=== PATIENT | female | born 1995 | race American Indian/Alaskan Native ===

== ENCOUNTER 2016-07-17 12:00 | Emergency (ER) | payer OTHER ==
[2016-07-17] MEDS ORDERED: FLEXERIL PO ONE (17:19)
[2016-07-17] MEDS ORDERED: MOTRIN PO ONE (17:19)
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
[2016-07-17 20:14] VITALS: BP 128/75
== END 2016-07-17 20:15 | disposition home or self-care (01) ==
LOC: ED 12:00
DX: S16.1XXA Strain of muscle, fascia and tendon at neck level, initial encounter (principal); M54.5 Low back pain; M25.511 Pain in right shoulder; V49.59XA Passenger injured in collision with other motor vehicles in traffic accident, initial encounter; Y93.9 Activity, unspecified; Y92.9 Unspecified place or not applicable; Y99.9 Unspecified external cause status
CPT/HCPCS: 72100

== ENCOUNTER 2018-05-10 12:48 | Emergency (ER) | payer OTHER ==
--- NOTE | 2018-05-10 13:14 | Emergency Department Report ---
Chief Complaint: Upper Respiratory Infection Stated Complaint: SINUS PRESSURE/WINDED Time Seen by Provider: 05/10/18 13:13 - HPI History of Present Illness: PMH FIBROIDS RX NONE PSH NONE MENSES CURRENT CIG ETOH NO DRUGS CO URTI S/S ABC INTACT VSS MSE COMPLETED MSE screening note: Focused history and physical exam performed. Due to findings the following was ordered: ED Disposition for MSE Condition: Stable
--- NOTE | 2018-05-10 16:01 | Emergency Department Report ---
- General Chief Complaint: Upper Respiratory Infection Stated Complaint: SINUS PRESSURE/WINDED Time Seen by Provider: 05/10/18 13:13 Source: patient Mode of arrival: Ambulatory Limitations: No Limitations - History of Present Illness Initial Comments: Sinus pain and pressure 4 days with productive cough. Patient did receive a flu shot PMD: Dr. Lion ROBERSON Complaint: cough, sore throat, rhinorrhea, nasal congestion, sinus pain -: days(s) (4) Severity: moderate Severity scale (0 -10): 8 Quality: other (pressure) Consistency: constant Improves With: nothing Worsens With: other (cough) Context: other (denies contacts or recent travel) Associated Symptoms: nasal congestion, cough, shortness of breath (on a daily). denies: fever, chills, sore throat, chest pain, nausea, vomiting, diarrhea Treatments Prior to Arrival: none - Related Data Previous Rx's Medication Instructions Recorded Last Taken Type Ibuprofen [Motrin] 600 mg PO Q8H PRN #15 tablet 07/17/16 Unknown Rx methOCARBAMOL [Robaxin TAB] 500 mg PO Q6H PRN #15 tablet 07/17/16 Unknown Rx traMADol [Ultram] 50 mg PO Q6HR PRN #12 tablet 07/17/16 Unknown Rx Azithromycin [Zithromax Z-IFEANYI] 1 dose PO DAILY 5 Days tab 05/10/18 Unknown Rx Benzonatate [Tessalon Perle] 100 mg PO TID PRN #20 capsule 05/10/18 Unknown Rx Guaifenesin/Pseudoephedrne HCl 1 each PO BID PRN #20 tab.er.12h 05/10/18 Unknown Rx [Mucinex D ER 600-60 mg Tablet] Ibuprofen [Motrin] 800 mg PO Q8HR PRN #30 tablet 05/10/18 Unknown Rx Allergies Allergy/AdvReac Type Severity Reaction Status Date / Time No Known Allergies Allergy Unverified 07/17/16 13:39 ED Review of Systems ROS: Stated complaint: SINUS PRESSURE/WINDED Other details as noted in HPI Comment: All other systems reviewed and negative ED Past Medical Hx - Past Medical History Previous Medical History?: Yes Additional medical history: Uterine fibroids - Surgical History Past Surgical History?: Yes Additional Surgical History: Tonsilectomy - Social History Smoking Status: Current Every Day Smoker Substance Use Type: Alcohol - Medications Home Medications: Home Medications Medication Instructions Recorded Confirmed Last Taken Type Ibuprofen [Motrin] 600 mg PO Q8H PRN #15 tablet 07/17/16 Unknown Rx methOCARBAMOL [Robaxin TAB] 500 mg PO Q6H PRN #15 tablet 07/17/16 Unknown Rx traMADol [Ultram] 50 mg PO Q6HR PRN #12 tablet 07/17/16 Unknown Rx Azithromycin [Zithromax Z-IFEANYI] 1 dose PO DAILY 5 Days tab 05/10/18 Unknown Rx Benzonatate [Tessalon Perle] 100 mg PO TID PRN #20 capsule 05/10/18 Unknown Rx Guaifenesin/Pseudoephedrne HCl 1 each PO BID PRN #20 tab.er.12h 05/10/18 Unknown Rx [Mucinex D ER 600-60 mg Tablet] Ibuprofen [Motrin] 800 mg PO Q8HR PRN #30 tablet 05/10/18 Unknown Rx ED Physical Exam - General Limitations: No Limitations - Other Other exam information: General: No limitations, patient is alert in no acute distress Head exam: Atraumatic, normocephalic Eyes exam: Normal appearance, pupils equal reactive to light, extraocular movements intact ENT: Moist mucous membrane, frontal and maxillary sinus tenderness, nasal ingestion Neck exam: Normal inspection, full range of motion, no meningismus nontender Respiratory exam: Clear to auscultation bilateral, no wheezes, rales, crackles, no tachypnea or accessory muscle use Cardiovascular: Normal rate and rhythm, normal heart sounds Abdomen: Soft, nondistended, and nontender, with normal bowel sounds, no rebound, or guarding Extremity: Full range of motion normal inspection no deformity Back: Normal Inspection, full range of motion, no tenderness Neurologic: Alert, oriented x3, cranial nerves intact, no motor or sensory deficit Psychiatric: normal affect, normal mood Skin: Warm, dry, intact ED Course Vital Signs 05/10/18 13:16 Temperature 98 F Pulse Rate 68 Respiratory 18 Rate Blood Pressure 109/58 O2 Sat by Pulse 100 Oximetry ED Medical Decision Making - Medical Decision Making Treated with a Z-Ifeanyi for sinusitis and URI symptoms. Follow-up with PMD encourage - Differential Diagnosis sinusitis, URI, bronchitis, pneumonia Critical Care Time: No Critical care attestation.: If time is entered above; I have spent that time in minutes in the direct care of this critically ill patient, excluding procedure time. ED Disposition Clinical Impression: Sinusitis, acute, URI (upper respiratory infection) Disposition: TO HOME OR SELFCARE Is pt being admited?: No Does the pt Need Aspirin: No Condition: Stable Instructions: Sinusitis (ED), Upper Respiratory Infection (ED) Additional Instructions: Take the medication as prescribed. Follow up with your doctor or the clinic/doctor provided. Return if symptoms worsen as indicated by your discharge instructions Prescriptions: Ibuprofen [Motrin] 800 mg PO Q8HR PRN #30 tablet PRN Reason: Pain , Severe (7-10) Guaifenesin/Pseudoephedrne HCl [Mucinex D ER 600-60 mg Tablet] 1 each PO BID PRN #20 tab.er.12h PRN Reason: Nasal Congestion Benzonatate [Tessalon Perle] 100 mg PO TID PRN #20 capsule PRN Reason: Cough Azithromycin [Zithromax Z-IFEANYI] 1 dose PO DAILY 5 Days tab Referrals: SHELTON HALL MD [Primary Care Provider] - 3-5 Days Time of Disposition: 16:01
== END 2018-05-10 16:22 | disposition home or self-care (01) ==
LOC: ED 12:48
CPT/HCPCS: 99282